=== PATIENT | male | born 1950 | race Caucasian/White ===

== ENCOUNTER 2018-09-10 21:49 | Emergency (ER) | payer OTHER ==
[2018-09-10] MEDS: SOD CHLORIDE 0.9% 820 ML IV (22:49)
[2018-09-10 22:58] LABS: ADD MAN DIFF? NO
[2018-09-10 23:05] LABS: ADD UMIC YES; UR ASCORBIC ACID NEGATIVE (NEGATIVE); UR BILIRUBIN (Dip) NEGATIVE (NEGATIVE); UR BLOOD (Dip) NEGATIVE (NEGATIVE); UR CLARITY CLEAR (CLEAR); UR COLOR STRAW (YELLOW); UR GLUCOSE (Dip) 3+ mg/dL (NEGATIVE); UR KETONES (Dip) NEGATIVE (NEGATIVE); UR LEUKOCYTE ESTERASE (Dip) NEGATIVE Leu/ul (NEGATIVE); UR NITRITE (Dip) NEGATIVE (NEGATIVE); UR RBC 0 /HPF (0-5); UR SPECIFIC GRAVITY (Dip) 1.027 (1.003-1.030); UR TOTAL PROTEIN (Dip) 2+ mg/dl (NEGATIVE); UR UROBILINOGEN (Dip) NEGATIVE (NEGATIVE); UR WBC 0 /HPF (0-5)
[2018-09-10 23:08] LABS: WHITE BLOOD COUNT 5.7 10^3/ul (4.8-10.8)
[2018-09-10 23:08] LABS: BASOPHIL # 0.1 10^3/ul (0.0-0.1); BASOPHILS % 0.9 % (0.0-2.0); EOSINOPHILS # 0.3 10^3/ul (0.0-0.5); EOSINOPHILS % 4.9 % (0.0-7.0); HEMATOCRIT 44.5 % (42.0-52.0); HEMOGLOBIN 15.5 g/dl (14.0-18.0); LYMPHOCYTES # 1.8 10^3/ul (0.8-2.9); MEAN CORPUSCULAR HEMOGLOBIN 30.9 pg (29.0-33.0); MEAN CORPUSCULAR HGB CONC 34.8 g/dl (32.0-37.0); MEAN CORPUSCULAR VOLUME 88.8 fl (82.0-101.0); MEAN PLATELET VOLUME 11.8 fl (7.4-10.4); MONOCYTE # 0.7 10^3/ul (0.3-0.9); MONOCYTES % 12.6 % (0.0-11.0); NEUTROPHIL # 2.9 10^3/ul (1.6-7.5); NEUTROPHILS % 50.2 % (39.0-77.0); PLATELET COUNT 160 10^3/UL (140-415); RED BLOOD COUNT 5.01 10^6/ul (4.70-6.10); RED CELL DISTRIBUTION WIDTH 12.3 % (11.5-14.5)
[2018-09-10 23:23] LABS: ANION GAP 10 (5-13); BLOOD UREA NITROGEN 19 mg/dl (7-20); CALCIUM 8.8 mg/dl (8.4-10.2); CARBON DIOXIDE 24 mmol/L (21-31); CHLORIDE 99 mmol/L (97-110); CREATININE 0.86 mg/dl (0.61-1.24); Estimated GFR > 60 mL/min (>60); MAGNESIUM 1.9 mg/dl (1.7-2.5); PHOSPHORUS 3.8 mg/dl (2.5-4.9); POTASSIUM 3.7 mmol/L (3.5-5.1); SODIUM 133 mmol/L (135-144)
[2018-09-10 23:57] LABS: GLUCOSE 418 mg/dl (70-220)
[2018-09-11] MEDS: ACCU-CHEK XX (00:45)
[2018-09-11] MEDS: INSULIN LISPRO 100 UNIT/ML VIAL SC (00:45)
[2018-09-11 00:51] LABS: MODE NASAL CANNULA; MetHgb Venous 0.2 %; Sample Type Blood venous; Site VENOUS LINE; Venous COHb 0.5 %; Venous Fraction OxyHgb 84.2 %; Venous Oxygen Sat 84.8 mmHG (55.0-75.0); Venous Total Hemglobin 15.9 g/dl
== END 2018-09-11 02:00 | disposition home or self-care (01) ==
LOC: E/R 09-11 02:00
DX: E11.65 Type 2 diabetes mellitus with hyperglycemia (principal); R42 Dizziness and giddiness; I10 Essential (primary) hypertension; I25.10 Atherosclerotic heart disease of native coronary artery without angina pectoris; Z95.1 Presence of aortocoronary bypass graft
CPT/HCPCS: 36415; 70450; 71045; 80048; 81001; 82803; 82962; 83735; 84100; 84484; 85025; 96372; 99285-25

== ENCOUNTER 2018-09-12 18:38 | Inpatient (IN) | payer OTHER ==
[2018-09-12 19:09] LABS: ADD MAN DIFF? NO
[2018-09-12 19:14] LABS: BASOPHIL # 0.1 10^3/ul (0.0-0.1); EOSINOPHILS # 0.3 10^3/ul (0.0-0.5); HEMATOCRIT 44.7 % (42.0-52.0); HEMOGLOBIN 15.4 g/dl (14.0-18.0); LYMPHOCYTES # 1.8 10^3/ul (0.8-2.9); LYMPHOCYTES % 29.8 % (15.0-51.0); MEAN CORPUSCULAR HEMOGLOBIN 31.1 pg (29.0-33.0); MEAN CORPUSCULAR HGB CONC 34.5 g/dl (32.0-37.0); MEAN CORPUSCULAR VOLUME 90.3 fl (82.0-101.0); MEAN PLATELET VOLUME 11.7 fl (7.4-10.4); MONOCYTE # 0.7 10^3/ul (0.3-0.9); NEUTROPHIL # 3.1 10^3/ul (1.6-7.5); PLATELET COUNT 159 10^3/UL (140-415); RED BLOOD COUNT 4.95 10^6/ul (4.70-6.10); RED CELL DISTRIBUTION WIDTH 12.6 % (11.5-14.5)
[2018-09-12] MEDS: SOD CHLORIDE 0.9% 780 ML IV (19:14)
[2018-09-12 19:30] LABS: ANION GAP 8 (5-13); BLOOD UREA NITROGEN 21 mg/dl (7-20); CALCIUM 8.8 mg/dl (8.4-10.2); CARBON DIOXIDE 24 mmol/L (21-31); CHLORIDE 103 mmol/L (97-110); CREATININE 1.03 mg/dl (0.61-1.24); Estimated GFR > 60 mL/min (>60); GLUCOSE 286 mg/dl (70-220); MAGNESIUM 1.8 mg/dl (1.7-2.5); PHOSPHORUS 4.5 mg/dl (2.5-4.9); POTASSIUM 4.1 mmol/L (3.5-5.1); SODIUM 135 mmol/L (135-144)
[2018-09-12 19:53] LABS: ADD UMIC YES; UR ASCORBIC ACID NEGATIVE (NEGATIVE); UR BILIRUBIN (Dip) NEGATIVE (NEGATIVE); UR BLOOD (Dip) NEGATIVE (NEGATIVE); UR CLARITY CLEAR (CLEAR); UR COLOR YELLOW (YELLOW); UR GLUCOSE (Dip) 3+ mg/dL (NEGATIVE); UR KETONES (Dip) NEGATIVE (NEGATIVE); UR LEUKOCYTE ESTERASE (Dip) NEGATIVE Leu/ul (NEGATIVE); UR NITRITE (Dip) NEGATIVE (NEGATIVE); UR RBC 0 /HPF (0-5); UR SPECIFIC GRAVITY (Dip) 1.021 (1.003-1.030); UR TOTAL PROTEIN (Dip) 2+ mg/dl (NEGATIVE); UR UROBILINOGEN (Dip) NEGATIVE (NEGATIVE); UR WBC 1 /HPF (0-5)
[2018-09-12 19:56] LABS: HEMOGLOBIN A1C 12.3 % (0-5.9)
[2018-09-12] MEDS: ASPIRIN 325 MG TAB PO (19:58)
[2018-09-12] MEDS ORDERED: BISACODYL (EC) 5 MG TAB PO (20:00)
[2018-09-12] MEDS ORDERED: ACETAMINOPHEN 325 MG TAB PO ×2 (20:00)
[2018-09-12] MEDS ORDERED: DOCUSATE SODIUM 100 MG CAP PO (20:00)
[2018-09-12] MEDS ORDERED: GLUCOSE GEL 15 GRAM TUBE BUCCAL (20:00)
[2018-09-12] MEDS ORDERED: ONDANSETRON 4 MG INJ IV ×2 (20:00)
[2018-09-12] MEDS ORDERED: DEXTROSE 50% 50 ML SYRINGE IV ×2 (20:00)
[2018-09-12] MEDS ORDERED: GLUCAGON 1 MG INJ IM (20:00)
[2018-09-12] MEDS ORDERED: NACL 0.9% 3 ML SYG IV (20:00)
[2018-09-12] MEDS ORDERED: GLUCOSE GEL 15 GRAM TUBE PO ×2 (20:00)
[2018-09-12 20:10] LABS: AMPHETAMINE/METHAMPHETAMINE Negative (NEGATIVE); BARBITURATES Negative (NEGATIVE); BENZODIAZEPINES Negative (NEGATIVE); CANNABINOIDS Negative (NEGATIVE); COCAINE Negative (NEGATIVE); OPIATES Negative (NEGATIVE)
[2018-09-12] MEDS: LISINOPRIL 20 MG TAB PO (20:37)
[2018-09-12] MEDS: INSULIN GLARGINE [LANTus] (100 UNITS/ML) SYG SC (20:38)
[2018-09-12 20:49] LABS: MODE NASAL CANNULA; MetHgb Venous 0.2 %; Sample Type Blood venous; Site VENOUS LINE; Venous COHb 0.5 %; Venous Fraction OxyHgb 91.1 %; Venous Oxygen Sat 91.7 mmHG (55.0-75.0); Venous Total Hemglobin 16.1 g/dl
[2018-09-12] MEDS: INSULIN ASPART [NOVOLOG] 3 ML PEN SC (22:00)
[2018-09-13] MEDS ORDERED: hydrALAzine 20 MG INJ IV (02:00)
[2018-09-13] MEDS: ACCU-CHEK XX (02:24)
[2018-09-13 06:34] LABS: ADD MAN DIFF? NO
[2018-09-13 06:44] LABS: BASOPHILS % 0.6 % (0.0-2.0); EOSINOPHILS # 0.3 10^3/ul (0.0-0.5); EOSINOPHILS % 4.4 % (0.0-7.0); HEMATOCRIT 44.1 % (42.0-52.0); LYMPHOCYTES # 1.7 10^3/ul (0.8-2.9); LYMPHOCYTES % 23.5 % (15.0-51.0); MEAN CORPUSCULAR HEMOGLOBIN 30.9 pg (29.0-33.0); MEAN CORPUSCULAR VOLUME 90.7 fl (82.0-101.0); MEAN PLATELET VOLUME 12.1 fl (7.4-10.4); MONOCYTE # 0.7 10^3/ul (0.3-0.9); MONOCYTES % 10.3 % (0.0-11.0); NEUTROPHIL # 4.3 10^3/ul (1.6-7.5); NEUTROPHILS % 60.9 % (39.0-77.0); PLATELET COUNT 162 10^3/UL (140-415); RED BLOOD COUNT 4.86 10^6/ul (4.70-6.10); RED CELL DISTRIBUTION WIDTH 12.7 % (11.5-14.5)
[2018-09-13 06:44] LABS: WHITE BLOOD COUNT 7.1 10^3/ul (4.8-10.8)
[2018-09-13 07:25] LABS: ALANINE AMINOTRANSFERASE 47 IU/L (13-69); ALBUMIN 3.1 g/dl (3.3-4.9); ALBUMIN/GLOBULIN RATIO 0.96; ALKALINE PHOSPHATASE 111 IU/L (42-121); ANION GAP 7 (5-13); ASPARTATE AMINO TRANSFERASE 25 IU/L (15-46); BILIRUBIN,INDIRECT 0.7 mg/dl (0-1.1); BILIRUBIN,TOTAL 0.7 mg/dl (0.2-1.3); BLOOD UREA NITROGEN 23 mg/dl (7-20); CALCIUM 8.9 mg/dl (8.4-10.2); CARBON DIOXIDE 26 mmol/L (21-31); CHLORIDE 106 mmol/L (97-110); CHOL/HDL RATIO 5.6 RATIO; CHOLESTEROL 136 mg/dl (100-200); CREATININE 0.96 mg/dl (0.61-1.24); Estimated GFR > 60 mL/min (>60); GLUCOSE 272 mg/dl (70-220); HDL CHOLESTEROL 24 mg/dl (30-78); LDL CHOLESTEROL,CALCULATED 72 mg/dl; POTASSIUM 3.6 mmol/L (3.5-5.1); SODIUM 139 mmol/L (135-144); TOTAL PROTEIN 6.3 g/dl (6.1-8.1); TRIGLYCERIDES 200 mg/dl (0-149)
[2018-09-13] MEDS: LISINOPRIL 20 MG TAB PO (08:21)
[2018-09-13] MEDS: AMLODIPINE 2.5 MG TAB PO (08:21)
[2018-09-13] MEDS: INSULIN ASPART [NOVOLOG] 3 ML PEN SC ×7 (08:30→21:09)
[2018-09-13] MEDS: INSULIN GLARGINE [LANTus] (100 UNITS/ML) SYG SC (08:52)
[2018-09-13] MEDS: ASPIRIN (EC) 81 MG TAB PO (12:01)
[2018-09-13 13:13] LABS: ERYTHROCYTE SEDIMENTATION RATE 3 mm/Hr (0-20)
[2018-09-13 20:03] LABS: RAPID PLASMA REAGIN NONREACTIVE (NR)
[2018-09-13] MEDS: ATORVASTATIN 40 MG TAB PO (20:11)
[2018-09-13] MEDS ORDERED: ATORVASTATIN 80 MG TAB PO (21:00)
[2018-09-14] MEDS: ACCU-CHEK XX (02:51)
[2018-09-14 07:30] LABS: ANION GAP 7 (5-13); BLOOD UREA NITROGEN 23 mg/dl (7-20); CALCIUM 9.2 mg/dl (8.4-10.2); CARBON DIOXIDE 29 mmol/L (21-31); CHLORIDE 106 mmol/L (97-110); CREATININE 0.93 mg/dl (0.61-1.24); Estimated GFR > 60 mL/min (>60); GLUCOSE 171 mg/dl (70-220); POTASSIUM 3.8 mmol/L (3.5-5.1); SODIUM 142 mmol/L (135-144)
[2018-09-14 07:45] LABS: FREE T4 (FREE THYROXINE) 0.88 ng/dl (0.78-2.44)
[2018-09-14] MEDS: ASPIRIN (EC) 81 MG TAB PO (09:06)
[2018-09-14] MEDS: AMLODIPINE 5 MG TAB PO ×2 (09:07→16:20)
[2018-09-14] MEDS: LISINOPRIL 20 MG TAB PO (09:07)
[2018-09-14] MEDS: INSULIN ASPART [NOVOLOG] 3 ML PEN SC ×7 (09:09→22:30)
[2018-09-14] MEDS: INSULIN GLARGINE [LANTus] (100 UNITS/ML) SYG SC (09:09)
[2018-09-14] MEDS: ENOXAPARIN 40 MG/0.4 ML SYG SC (09:09)
[2018-09-14] MEDS: CLOPIDOGREL 75 MG TAB PO (16:19)
[2018-09-14] MEDS: ATORVASTATIN 40 MG TAB PO (21:02)
[2018-09-15] MEDS: ACCU-CHEK XX (01:33)
[2018-09-15] MEDS: ENOXAPARIN 40 MG/0.4 ML SYG SC (08:09)
[2018-09-15] MEDS: INSULIN GLARGINE [LANTus] (100 UNITS/ML) SYG SC (08:10)
[2018-09-15] MEDS: INSULIN ASPART [NOVOLOG] 3 ML PEN SC ×7 (08:10→21:26)
[2018-09-15] MEDS: ASPIRIN (EC) 81 MG TAB PO (08:24)
[2018-09-15] MEDS: CLOPIDOGREL 75 MG TAB PO (08:24)
[2018-09-15] MEDS: LISINOPRIL 20 MG TAB PO (08:25)
[2018-09-15] MEDS: AMLODIPINE 10 MG TAB PO (08:29)
[2018-09-15] MEDS: ATORVASTATIN 40 MG TAB PO (21:23)
[2018-09-16] MEDS: ACCU-CHEK XX (02:33)
[2018-09-16] MEDS: INSULIN ASPART [NOVOLOG] 3 ML PEN SC ×6 (07:57→17:17)
[2018-09-16] MEDS: INSULIN GLARGINE [LANTus] (100 UNITS/ML) SYG SC (08:02)
[2018-09-16] MEDS: ENOXAPARIN 40 MG/0.4 ML SYG SC (08:03)
[2018-09-16] MEDS: ASPIRIN (EC) 81 MG TAB PO (08:03)
[2018-09-16] MEDS: LISINOPRIL 20 MG TAB PO (08:04)
[2018-09-16] MEDS: CLOPIDOGREL 75 MG TAB PO (08:04)
[2018-09-16] MEDS: AMLODIPINE 10 MG TAB PO (08:04)
[2018-09-17] MEDS ORDERED: INSULIN GLARGINE [LANTus] (100 UNITS/ML) SYG SC (08:00)
== END 2018-09-16 18:43 | DRG 65 ==
LOC: TEL 09-16 05:46 → E/R 18:38 → TEL 19:47
PROVIDERS: Family Medicine
DX: I63.9 Cerebral infarction, unspecified (principal); G81.94 Hemiplegia, unspecified affecting left nondominant side; E11.65 Type 2 diabetes mellitus with hyperglycemia; I10 Essential (primary) hypertension; E78.5 Hyperlipidemia, unspecified; I25.10 Atherosclerotic heart disease of native coronary artery without angina pectoris; Z79.4 Long term (current) use of insulin; Z79.82 Long term (current) use of aspirin; Z95.1 Presence of aortocoronary bypass graft; Z79.02 Long term (current) use of antithrombotics/antiplatelets
CPT/HCPCS: 36415; 70450; 70544; 70548; 70551; 71045; 80048; 80053; 80061; 80307; 81001; 82803; 82962; 83036; 83735; 84100; 84439; 84443; 85025; 85651; 86592; 92610; 93005; 93306; 93880; 97110; 97116; 97162; 97165; 97530; 97535; 99285-25